=== PATIENT | male | born 1960 | race Caucasian/White ===

== ENCOUNTER 2022-05-20 09:15 | Day surgery (SDC) | payer BC ==
[~2022-05-20] VITALS: Ht 172.7 cm; Wt 100.0 kg
[~2022-05-20 09:15] MED LIST: ASPIR 8181 M1 PO; CLOP75 PO; COREG6.25 MG PO; DICLOFENAC SOD100 G1 TOP; FARXIGA10 MG PO; FISH OIL PO; GLIMEPIRIDE4 MG PO; GLIP2.5ER PO; Isosorbide Mono30 MG PO; LOSA50 PO; MELO7.5 PO; METF500 PO; Simvastatin40 MG PO
--- NOTE | 2022-05-20 18:38 | NUR ---
SHIFT SUMMARY PT A&OX4, VSS/RA, WEI PO, PAIN MANAGED W/TYLENOL AND TORADOL, STAND PIVOT FWW & GB 2 PP MOD ASSIST/UP TO CHAIR, IVF @ 70 MLS/HR, ABX PER EMAR. AWAITING POST OP VOID. WILL REPORT TO ONCOMING NOC RN.
[2022-05-21 04:16] LABS: BASOPHILS ABSOLUTE AUTO 0.01 K/mm3 (0.00-0.23); BASOPHILS PERCENT AUTO 0 % (0-2); EOSINOPHILS ABSOLUTE AUTO 0.01 K/mm3 (0.00-0.68); EOSINOPHILS PERCENT AUTO 0 % (0-6); Hematocrit 40.8 % (37.0-53.0); Hemoglobin 14.5 g/dL (13.5-17.5); IMMATURE GRAN ABSOLUTE AUTO 0.05 K/mm3 (0.00-0.10); IMMATURE GRAN PERCENT AUTO 1 % (0-1); LYMPHOCYTES ABSOLUTE AUTO 0.96 K/mm3 (0.84-5.20); LYMPHOCYTES PERCENT AUTO 9 % (21-46); MONOCYTES ABSOLUTE AUTO 0.48 K/mm3 (0.16-1.47); MONOCYTES PERCENT AUTO 4 % (4-13); Mean Corpuscular HGB 30.9 pg (26.0-34.0); Mean Corpuscular HGB Conc 35.5 g/dL (31.5-36.5); Mean Corpuscular Volume 87 fL (80-100); Mean Platelet Volume 10.5 fL (9.1-12.4); NEUTROPHILS ABSOLUTE AUTO 9.48 K/mm3 (1.96-9.15); NEUTROPHILS PERCENT AUTO 86 % (41-73); Platelet Count 173 K/mm3 (150-400); RDW Coefficient Variation 12.2 % (11.7-14.2); RDW Standard Deviation 38.9 fL (35.1-46.3); Red Blood Cell Count 4.69 M/mm3 (4.30-5.90); White Blood Cell Count 10.99 K/mm3 (4.00-11.30)
[2022-05-21 04:39] LABS: Bun/Creatinine Ratio 27.3 (12.0-20.0); Calcium, Blood 8.6 mg/dL (8.5-10.1); Creatinine, Blood 0.73 mg/dL (0.60-1.20); Potassium, Blood 4.5 mmol/L (3.5-5.5)
--- NOTE | 2022-05-21 06:49 | NUR ---
SHIFT SUMMARY NO ACUTE CHANGES OVER NIGHT, VSS, ON RA, DRSG C/D/I, PAIN MANAGED W/OXY,TYLENOL, TORADOL. TOLERATING PO INTAKE, VOIDING WNL, PT IS UP IN HIS CHAIR THIS AM DRESSED AND READY TO START THE DAY. CALL LIGHT IN REACH.
[2022-05-21] MEDS ORDERED: Percocet 5-3251 EACH PO (07:38)
--- NOTE | 2022-05-21 09:50 | NUR ---
DISCHARGE PT HAS CLEARED THERAPY. PAIN WELL CONTROLLED. EATING, DRINKING, & VOIDING WELL. SCRIPT ALREADY PICKED UP BY SPOUSE. [facility] [employer] [facility] SENT w/ PT. ESCORTED OUT VIA W/C.
== END 2022-05-21 09:54 | disposition home or self-care (01) ==
LOC: ORSCMMR 09:15 → ORD 10:00 → ORSCMMR 11:00 → SURS 16:35 → ORSCMMR 05-21 09:54
PROVIDERS: Orthopaedic Surgery
PROC: 0SRD0JA Replacement of Left Knee Joint with Synthetic Substitute, Uncemented, Open Approach (ICD-10-PCS; principal; 2022-05-20 11:00)
DX: M17.12 Unilateral primary osteoarthritis, left knee (principal); I10 Essential (primary) hypertension; I25.10 Atherosclerotic heart disease of native coronary artery without angina pectoris; Z87.891 Personal history of nicotine dependence; E11.9 Type 2 diabetes mellitus without complications; I25.2 Old myocardial infarction; Z79.02 Long term (current) use of antithrombotics/antiplatelets; Z79.84 Long term (current) use of oral hypoglycemic drugs; Z79.899 Other long term (current) drug therapy; E66.9 Obesity, unspecified; Z68.33 Body mass index [BMI] 33.0-33.9, adult
CPT/HCPCS: 36415; 73560-LT; 80048; 82947; 85025; 97110; 97116; 97161; A9270; C1776; J0171; J0690; J0735; J1100; J1815; J1885; J2250; J2405; J2704; J2795; J3010; J7120

== ENCOUNTER 2022-07-22 08:18 | Day surgery (SDC) | payer BC ==
[~2022-07-22 08:18] MED LIST changes: +Percocet 5-3251 EACH PO
--- NOTE | 2022-07-22 10:41 | NUR ---
History, Chart, Medications and Allergies reviewed before start of procedure.Pre-Op teaching done. Pt verbalizes understanding. AT BEDSIDE
--- NOTE | 2022-07-22 13:08 | NUR ---
1250 AMBULATE TO BR STEADY ON FEET VOIDED WITHOUT DIFFICULTY. NOZIN AND MOUTH WASH DONE.
--- NOTE | 2022-07-22 19:29 | NUR ---
SHIFT SUMMARY POD0 R TKA, A/XO4, VSS, TOLETING PO, HAS NOT BEEN UP R/T SPINAL ANESTHESIA. NO ACUTE EVENTS THIS SHIFT, CALL LIGHT IN REACH, REPORT GIVEN TO AMY RN.
[2022-07-23 05:28] LABS: BASOPHILS ABSOLUTE AUTO 0.05 K/mm3 (0.00-0.23); BASOPHILS PERCENT AUTO 1 % (0-2); EOSINOPHILS ABSOLUTE AUTO 0.25 K/mm3 (0.00-0.68); EOSINOPHILS PERCENT AUTO 3 % (0-6); Hematocrit 39.8 % (37.0-53.0); Hemoglobin 13.6 g/dL (13.5-17.5); IMMATURE GRAN ABSOLUTE AUTO 0.03 K/mm3 (0.00-0.10); IMMATURE GRAN PERCENT AUTO 0 % (0-1); LYMPHOCYTES ABSOLUTE AUTO 2.29 K/mm3 (0.84-5.20); LYMPHOCYTES PERCENT AUTO 26 % (21-46); MONOCYTES ABSOLUTE AUTO 0.99 K/mm3 (0.16-1.47); MONOCYTES PERCENT AUTO 11 % (4-13); Mean Corpuscular HGB 30.6 pg (26.0-34.0); Mean Corpuscular HGB Conc 34.2 g/dL (31.5-36.5); Mean Corpuscular Volume 89 fL (80-100); NEUTROPHILS ABSOLUTE AUTO 5.23 K/mm3 (1.96-9.15); NEUTROPHILS PERCENT AUTO 59 % (41-73); Platelet Count 131 K/mm3 (150-400); RDW Coefficient Variation 12.3 % (11.7-14.2); RDW Standard Deviation 40.4 fL (35.1-46.3); Red Blood Cell Count 4.45 M/mm3 (4.30-5.90); White Blood Cell Count 8.84 K/mm3 (4.00-11.30)
--- NOTE | 2022-07-23 05:36 | NUR ---
SHIFT SUMMARY POD1 RTKA. SENSATION AND CIRCULATION REMAINS INTACT. DRESSING C/D/I. VSS. PT SLEPT WELL T/O THE NIGHT. PT WAS ABLE TO AMBULATE IN [place] AND VOID W/O DIFFICUTLY. TOLLERATING PO INTAKE W/O N/V. PLAN FOR PT TO WORK WITH PT TODAY AND D/C HOME. THE PATIENT IS CURRENTLY SLEEPING, IN NO DISTRESS, CALL LIGHT IN REACH.
[2022-07-23 05:45] LABS: Bun/Creatinine Ratio 24.6 (12.0-20.0); Calcium, Blood 8.6 mg/dL (8.5-10.1); Creatinine, Blood 0.77 mg/dL (0.60-1.20); Potassium, Blood 4.1 mmol/L (3.5-5.5)
[2022-07-23] MEDS ORDERED: Aspir 8181 MG PO (08:15)
[2022-07-23] MEDS ORDERED: OXYACE7.5T PO (08:31)
--- NOTE | 2022-07-23 10:27 | NUR ---
DISCHARGE NOTE: PATIENT AND PATIENTS WERE EDUCATED ON DISCHARGE INSTRUCTIONS. BOTH VERBALIZED UNDERSTANDING OF INSTRUCTIONS AND HAD NO FURTHER QUESTIONS AT THIS TIME. PAIN IS MANAGED WITH ORAL PAIN MEDICATIONS. HARD PERSCRIPTION WAS GIVEN TO HIS . HIS RIGHT KNEE HAS AN AQUACEL AND MARIBELL WRAP THAT ARE C/D/I. PATIENT DENIES NUMBNESS OR TINGLING IN ALL EXTREMITIES. HE IS TOLERATING PO INTAKE AND IS VOIDING. PATIENT IS DRESSED AND HAS PERSONAL ITEMS IN THE ROOM GATHERED. IV WAS TAKEN OUT AND WNL. HE IS BEING WHEELCHAIRED OUT TO HIS 'S CAR TO BE TAKEN HOME.
== END 2022-07-23 10:30 | disposition home or self-care (01) ==
LOC: ORSCMMR 08:18 → ORD 10:00 → ORSCMMR 10:00 → SURS 15:42 → ORSCMMR 07-23 10:30
PROVIDERS: Orthopaedic Surgery
PROC: 0SRC0JA Replacement of Right Knee Joint with Synthetic Substitute, Uncemented, Open Approach (ICD-10-PCS; principal; 2022-07-22 13:30)
DX: M17.11 Unilateral primary osteoarthritis, right knee (principal); Z96.652 Presence of left artificial knee joint; Z23 Encounter for immunization; I10 Essential (primary) hypertension; E11.9 Type 2 diabetes mellitus without complications; I25.2 Old myocardial infarction; Z79.4 Long term (current) use of insulin; Z79.84 Long term (current) use of oral hypoglycemic drugs; Z79.899 Other long term (current) drug therapy; Z79.82 Long term (current) use of aspirin; E66.9 Obesity, unspecified; Z68.34 Body mass index [BMI] 34.0-34.9, adult
CPT/HCPCS: 36415; 73560-RT; 80048; 82947; 85025; 90686; 97116; 97161; 97530; A9270; C1776; J0171; J0690; J0735; J1885; J2250; J2704; J2795; J3010; J3370; J7120